=== PATIENT | female | born 1955 | race Caucasian/White ===

== ENCOUNTER 2020-07-11 11:46 | Emergency (ER) | payer MEDICARE ==
[~2020-07-11] VITALS: Ht 157.5 cm; Wt 58.0 kg
[2020-07-11] MEDS ORDERED: TRAZODONE50 MG PO (12:08)
[2020-07-11] MEDS ORDERED: PROTONIX40 M2 PO (12:08)
[2020-07-11] MEDS ORDERED: VYVANSE70 MG PO (12:09)
[2020-07-11] MEDS ORDERED: ASPIRIN81 MG PO (12:09)
[2020-07-11] MEDS ORDERED: VITA D-1000 PO (12:10)
[2020-07-11] MEDS ORDERED: PRISTIQ100 MG PO (12:13)
[2020-07-11 12:25] LABS: HEMATOCRIT 45.1 % (37.0-47.0); HEMOGLOBIN 14.5 g/dl (12.0-16.0); IMMATURE GRANULOCYTES 0.3 % (0.0-5.0); MEAN CELL VOLUME 96.2 fL CALC (80.0-100.0); MEAN CORPUSCULAR HGB 30.9 pG CALC (26.0-32.0); MEAN CORPUSCULAR HGB CONC 32.2 g/dL CAL (32.0-36.0); NEUT# 14.65 thou/uL (2.00-7.15); RED BLOOD COUNT 4.69 mill/uL (4.20-5.60)
[2020-07-11 12:40] LABS: ALBUMIN 5.1 g/dL (3.2-5.0); ALKALINE PHOSPHATASE 84 u/l (38-126); AMYLASE 78 u/l (30-110); ANION GAP 14 (6-22 (CALC)); BILIRUBIN, TOTAL 0.6 mg/dL (0.0-1.4); BUN 16 mg/dL (8-23); BUN/CREATININE RATIO 26 (12-20 (CALC)); CARBON DIOXIDE 28 mmol/l (22-30); CHLORIDE 99 mmol/l (95-108); CREATININE 0.6 mg/dL (0.5-1.0); GFR > 60 ML/MIN (>=60 (CALC)); GFR FOR AFR.AMER. > 60 ML/MIN (>=60 (CALC)); LIPASE 91 u/l (23-300); POTASSIUM 4.3 mmol/l (3.5-5.1); SGOT/AST 27 u/l (9-36); SODIUM 137 mmol/l (137-146); TOTAL PROTEIN 8.4 g/dL (6.3-8.2)
[2020-07-11 14:08] LABS: URINE BILIRUBIN - DIPSTICK NEGATIVE (NEGATIVE); URINE BLOOD DIPSTICK NEGATIVE (NEGATIVE); URINE COLOR YELLOW; URINE GLUCOSE - DIPSTICK NEGATIVE (NEGATIVE); URINE KETONE NEGATIVE (NEGATIVE); URINE LEUK ESTERASE NEGATIVE (NEGATIVE); URINE PROTEIN - DIPSTICK NEGATIVE (NEG-TRACE); URINE SPECIFIC GRAVITY <=1.005; URINE UROBILINOGEN - DIPSTICK 0.2 E.U./dL (0.2)
[2020-07-11 14:09] LABS: URINE NITRITE - DIPSTICK NEGATIVE (Negative)
[2020-07-11] MEDS ORDERED: ZOFRAN4 MG/TAB PO (15:41)
[2020-07-11] MEDS ORDERED: HYDROCO/APAP1 TA9 PO (15:41)
[2020-07-11 15:44] VITALS: BP 92/59
== END 2020-07-11 15:58 | disposition home or self-care (01) ==
LOC: ED 11:46
DX: R11.2 Nausea with vomiting, unspecified (principal); R19.7 Diarrhea, unspecified; F41.9 Anxiety disorder, unspecified; F32.9 Major depressive disorder, single episode, unspecified; Z20.822 Contact with and (suspected) exposure to COVID-19
CPT/HCPCS: Q9967